=== PATIENT | male | born 1955 | race Caucasian/White ===

== ENCOUNTER → 2017-11-24 | Emergency (ER) | payer OTHER ==
[~2017-11-24] VITALS: Ht 175.3 cm; Wt 82.6 kg
[~2017-11-24] MED LIST: ALLERGY25 MG PO; ASPIRIN EC81 MG PO; CANDESARTAN CILE8 MG PO; FENOFIBRATE160 MG PO; FENOGLIDE120 MG PO; HYDROXYZINE HCL25 MG PO; IMITREX50 MG PO; MEDROL4 M1 PO; NORCO 10-325 T1 EACH PO; NORCO 5-325 TA1 EACH PO; PRAVASTATIN SOD80 MG PO; ZITHROMAX250 MG PO
--- NOTE | 2017-11-26 12:33 | EKG ---
[facility] [address] [facility] [place], [place] [address] Signed Normal sinus rhythm Normal ECG When compared with ECG of 05-JUL-2016 12:43, No significant change was found Confirmed by SACHA JAMA MD ([id number]) on 11/26/2017 12:33:42 PM Electronically Signed By: SACHA JAMA MD 11/26/17 1233 PATIENT NAME: ELLI MOORE JR Electrocardiogram DATE OF : 57 PHYSICIAN: SACHA JAMA MD REPORT #: [id number] REPORT IS CONFIDENTIAL AND NOT TO BE RELEASED WITHOUT AUTHORIZATION
== END ==
LOC: ED 19:48
DX: R07.89 Other chest pain (principal); E78.00 Pure hypercholesterolemia, unspecified; I10 Essential (primary) hypertension; Z87.891 Personal history of nicotine dependence; Z88.8 Allergy status to other drugs, medicaments and biological substances; Z88.2 Allergy status to sulfonamides; Z79.899 Other long term (current) drug therapy; Z79.82 Long term (current) use of aspirin
CPT/HCPCS: 71046; 80053; 84484; 85025; 85379; 93005; 93010; 99284

== ENCOUNTER 2018-10-16 12:46 | Day surgery (SDC) | payer OTHER ==
[~2018-10-16] VITALS: Ht 175.3 cm; Wt 78.9 kg
[~2018-10-16 12:46] MED LIST changes: +OMEPRAZOLE20 MG PO
[2018-10-16] MEDS ORDERED: MULTIVITAMINS1 EAC7 PO (13:05)
--- NOTE | 2018-10-16 15:04 | NUR ---
10/16/18 1504 Camille Villanueva SN 1447- PT ARRIVES IN PACU. RESPS ARE EVEN AND UNLABORED. PT 02 SATS HIGH 90'S ON 3 L VIA NC. PT IS AWAKE WITH EYES OPEN. DENIES ANY PAIN, NAUSEA, OR DIZZINESS AT THIS TIME. 1453- NEW CO2 MONITOR APPLIED CO2 LEVELS WERE LOW AND MONITOR WAS CUT IN SURGERY. CO2 IS 33. 02 REMOVED. PT O2 SATS HGH 90'S ON RA. TOLERATING WELL. PT 02 SAT DECREASES TO HIGH 80'S BUT WITH VERBAL STIMULATION AND REMINDING PT TO COUGH AND JEB BREATHE, PT IT ABLE TO BRING HIS OWN O2 SATS UP TO HIGH 90'S. RESPS ARE SHALLOW BUT REMAIN UNLABORED. PT DENIES PAIN NAUSEA AND DIZZINESS AT THIS TIME. EDUCATED PT TO PASS FLATUS NEEDED. PT DOES REPORT THAT HE HAS BEEN DOING THIS NEEDED. 1503- DR OLGUIN AT BEDSIDE SPEAKING WITH PT ABOUT SURGERY. PT IS ABLE TO HOLD A CONVERSATION AND ASK QUESTIONS. ALL PT'S QUESTIONS WERE ANSWERED BY DR OLGUIN.
--- NOTE | 2018-10-18 10:55 | OR ---
[facility] [address] [place], [place] [address] Signed DATE OF OPERATION: 10/16/2018 SURGEON: Yan Olguin MD PREOPERATIVE DIAGNOSES: 1. Unexpected weight loss of 20 pounds, bloating, belching, abdominal pain, and episodic dysphagia. 2. Occasional rectal bleeding. POSTOPERATIVE DIAGNOSES: 1. Small hiatal hernia without esophagitis and mild diffuse gastritis. 2. Prepyloric lesion suggestive of polyp, not obstructing. 3. Small polyp at 80 cm of colon, otherwise normal. PROCEDURE: 1. Esophagogastroduodenoscopy with biopsy. 2. Total colonoscopy to cecum with cold morcellation polypectomy x1. ANESTHESIA: Intravenous sedation, fentanyl 150 mcg, Versed 6 mg total. INDICATION: This 62-year-old white man is a patient of Dr. Pope and has had issues of weight loss of between 10 and 20 pounds over the past few months, which is unintentional. He has additionally had some bloating, belching, and so forth. He has had occasional dysphagia. He has no family history of gastroesophageal carcinoma or family history of colon cancer. He occasionally has rectal bleeding. He does have history of having polyp in the colon in the past as well as diverticulosis. He is admitted at this time to undergo upper endoscopy and colonoscopy to better characterize the problem understanding the risks of bleeding, infection, perforation, and so on. FINDINGS: On upper endoscopy, he did have a poor flap valve and small hiatal hernia, but no sign of esophagitis. Certainly, no neoplasm, no Malagon's epithelium. There is a pre-pyloric mucosal abnormality. It was suggestive of a polyp that was biopsied. It certainly was not obstructing. It would not cause any symptoms. The duodenum was normal. There was mild diffuse gastritis. CLOtest was negative 20 minutes postprocedure. On colonoscopy, the prep was good. Complete colonoscopy was undertaken of the cecum. Electronically Signed By: YAN OLGUIN MD 10/18/18 1055 PATIENT NAME: ELLI MOORE JR OPERATIVE REPORT DATE OF : 57 REPORT #: [id number] PHYSICIAN: YAN OLGUIN MD PCP: JESSICA POPE MD REPORT IS CONFIDENTIAL AND NOT TO BE RELEASED WITHOUT AUTHORIZATION [facility] [address] [place], [place] [address] Signed The ileum was entered and the ileum was normal. There was a small polyp at approximately 80 cm from the anal verge, which was excised with cold morcellation technique. The remaining colon was normal. Diverticula were not prominent on today's examination. Retroflexed view was normal as well. Prostate exam was normal. DESCRIPTION OF PROCEDURE: The patient was brought to the endoscopy suite and given topical Hurricaine spray hypopharyngeal anesthesia and placed in lateral decubitus position. A bite block was placed. He was given intravenous sedation to the point of slurred speech and nystagmus with full cardiopulmonary monitoring and an Olympus video upper endoscope was passed in the hypopharynx. The vocal cords appeared normal. Scope was advanced to the esophagus, which throughout its length was normal. The scope was passed to the stomach, which was insufflated with air. Rugal folds appeared normal. Pylorus was normal. Scope was passed through it into the duodenum. The 2nd and 3rd portions of the duodenum were normal. The ampulla was normal. The bulb had mild inflammation, not much and certainly no ulceration or erosion. Biopsies were taken of the second and bulbar portion. The scope was withdrawn to the distal of the side of the antrum where a small prepyloric lesion suggestive of adenoma was noted. This was biopsied multiply. It was not obstructing. Narrow band imaging with serpiginous mucosal changes made one consider this as possibly adenomatous. Biopsies were taken of the antrum and more proximal stomach for both AMNA and pathologic testing. Retroflexed view showed a poor flap valve. retroflex showing esophageal mucosa. The scope was straightened withdrawn and biopsies taken of the distal esophagus, though it looked entirely normal. This included narrow band imaging. There was no sign of Malagon's epithelium. The scope was carefully withdrawn. The remaining esophagus normal. Plans were then made for colonoscopy. The table was rotated and additional sedation given. Digital rectal examination showed a normal prostate. The [employer] video colonoscope was passed in the rectum and manipulated throughout the colon ultimately intubating the cecum itself. The ileocecal valve and appendiceal orifice were identified as normal. Various manipulations, the scope was advanced into the ileum, the ileum was normal. Scope was withdrawn and careful withdrawal of scope showed no abnormality until approximately 80 cm from the anal verge where a small polyp appeared. This was excised with cold morcellation technique. Further withdrawal of scope showed no sign of other abnormality. I did not appreciate diverticulosis on this evaluation though it has been said to be present in the past. Retroflexed view was normal. The scope was removed. The patient was taken to recovery room in good condition. CONCLUDING DIAGNOSIS: No sign of esophagitis, mild gastritis and duodenitis. Review of his chart shows ultrasound performed recently of the abdomen was normal as regard to the gallbladder. This was performed on October 02, 2018. There is no sign of stones though the gallbladder Electronically Signed By: YAN OLGUIN MD 10/18/18 1055 PATIENT NAME: OSCAR ELLI OPERATIVE REPORT DATE OF : 57 REPORT #: [id number] PHYSICIAN: YAN OLGUIN MD PCP: JESSICA POPE MD REPORT IS CONFIDENTIAL AND NOT TO BE RELEASED WITHOUT AUTHORIZATION [facility] [address] [place], [place] [address] Signed was somewhat contracted. On colonoscopy, there was no sign of inflammatory lesion or cancer. The small polyp that was excised would not account for his symptoms. PLAN: Consideration will be made at this point for CCK HIDA test. We will see him back after that. He is already on omeprazole 20 mg daily. We will not change that regimen at this time. MD EZRA Menjivar/NEGRA /[id number] cc: Jessica Pope MD Copies: JESSICA POPE MD ~ Electronically Signed By: YAN OLGUIN MD 10/18/18 1055 PATIENT NAME: ZOFIAJARRETT BONILLAELLIL OPERATIVE REPORT DATE OF : 57 REPORT #: [id number] PHYSICIAN: YAN OLGUIN MD PCP: JESSICA POPE MD REPORT IS CONFIDENTIAL AND NOT TO BE RELEASED WITHOUT AUTHORIZATION
== END 2018-10-16 15:45 | disposition home or self-care (01) ==
LOC: OPS 12:46 → DS 12:46 → OPS 14:00 → DS 14:00 → OPS 15:45
PROVIDERS: Surgery
PROC: 0DB98ZX Excision of Duodenum, Via Natural or Artificial Opening Endoscopic, Diagnostic (ICD-10-PCS; 2018-10-16)
PROC: 0DB78ZX Excision of Stomach, Pylorus, Via Natural or Artificial Opening Endoscopic, Diagnostic (ICD-10-PCS; 2018-10-16)
PROC: 0DBE8ZX Excision of Large Intestine, Via Natural or Artificial Opening Endoscopic, Diagnostic (ICD-10-PCS; principal; 2018-10-16 14:00)
PROC: 0DB58ZX Excision of Esophagus, Via Natural or Artificial Opening Endoscopic, Diagnostic (ICD-10-PCS; 2018-10-16 14:00)
DX: D12.6 Benign neoplasm of colon, unspecified (principal); K29.80 Duodenitis without bleeding; K31.7 Polyp of stomach and duodenum; K29.50 Unspecified chronic gastritis without bleeding; K44.9 Diaphragmatic hernia without obstruction or gangrene; I10 Essential (primary) hypertension; K21.9 Gastro-esophageal reflux disease without esophagitis; R63.4 Abnormal weight loss; K57.30 Diverticulosis of large intestine without perforation or abscess without bleeding; Z88.2 Allergy status to sulfonamides; Z98.890 Other specified postprocedural states; Z86.010 Personal history of colon polyps; Z79.899 Other long term (current) drug therapy
CPT/HCPCS: 99153; G0500; J2250; J3010; J7120